=== PATIENT | female | born 1945 | race Asian ===

== ENCOUNTER → 2016-03-18 | Outpatient (CLI) | payer MEDICARE, OTHER | LOC: MC.RAD 13:39 | DX: Z12.31 Encounter for screening mammogram for malignant neoplasm of breast (principal) ==

== ENCOUNTER → 2017-03-21 | Outpatient (CLI) | payer MEDICARE, OTHER | LOC: MC.RAD 09:43 | DX: Z12.31 Encounter for screening mammogram for malignant neoplasm of breast (principal); N64.89 Other specified disorders of breast ==

== ENCOUNTER → 2017-03-30 | Outpatient (CLI) | payer MEDICARE, OTHER | LOC: MC.RAD 12:54 | DX: N60.01 Solitary cyst of right breast (principal) ==

== ENCOUNTER → 2018-05-25 | Outpatient (CLI) | payer MEDICARE, OTHER ==
[~2018-05-25] MED LIST: ASPIRIN 81M81 MG/TA2 PO; FISH OIL 1000MG1 CAP PO; FOSAMAX 70MG TA70 MG PO; GLUCOTROL 5M5 MG/TAB PO; JANUVIA 100MG100 MG PO; LIPITOR20 MG PO; PRINIVIL5 MG PO; ROCALTROL0.5 MCG PO; TIROSINT125 MC1 PO; ZYRTEC 10MG10 MG PO
== END ==
LOC: MC.RAD 09:08
DX: Z12.31 Encounter for screening mammogram for malignant neoplasm of breast (principal)

== ENCOUNTER 2018-10-16 07:02 | Outpatient (CLI) | payer MEDICARE, OTHER ==
[~2018-10-16] VITALS: Ht 162.6 cm; Wt 78.1 kg
[2018-10-16] VITALS (13 sets, daily range): BP systolic 100–184; BP diastolic 62–91; PULSE 68–97; TEMP 98–98.1
[2018-10-16] MEDS ORDERED: GLUCOPHAGE1000 MG PO (07:32)
[2018-10-16] MEDS ORDERED: TYLENOL 500MG500 MG PO (07:33)
--- NOTE | 2018-10-16 08:20 | NUR ---
pt having CT scan of chest done at this time
--- NOTE | 2018-10-16 08:43 | NUR ---
DR YOUNGER IN ROOM, VERSED 0.5MG IV THEN FENTANYL 25MCG IV GIVEN ORDERED BEFORE PROCEDURE.
--- NOTE | 2018-10-16 08:50 | NUR ---
JOSESITO OBTAINED AND PUT IN FORMULIN, PT TO W/C, NO C/O. BANDAID OVER SITE
--- NOTE | 2018-10-16 11:31 | NUR ---
Dr. Goldman in to see pt, CXR complete. INT discontinued intact. Discharge instructions given . Transferred to private car by dimitry
== END 2018-10-16 11:50 | disposition home or self-care (01) ==
LOC: COL.RAD 07:02
DX: Z01.818 Encounter for other preprocedural examination (principal); J84.10 Pulmonary fibrosis, unspecified; R91.8 Other nonspecific abnormal finding of lung field
CPT/HCPCS: J2250; J3010

== ENCOUNTER → 2018-11-03 | Outpatient (CLI) | payer MEDICARE, OTHER ==
[~2018-11-03] VITALS: Ht 162.6 cm; Wt 76.0 kg
[2018-11-03] VITALS (11 sets, daily range): BP systolic 143–178; BP diastolic 75–98; PULSE 80–107
[~2018-11-03] MED LIST changes: +GLUCOPHAGE1000 MG PO; +TYLENOL 500MG500 MG PO
--- NOTE | 2018-11-03 13:02 | NUR ---
Pt bp elevated Dr Goldman requested meds to be given.
--- NOTE | 2018-11-03 13:11 | NUR ---
Specimen obtained by Dr Goldman and placed in formalin. Specimen labeled. f
--- NOTE | 2018-11-03 13:45 | NUR ---
pt to ct per ambulation. Monitors applied to pt. Pt in prone position on ct table.
== END ==
LOC: COL.RAD 11:52
DX: C34.12 Malignant neoplasm of upper lobe, left bronchus or lung (principal); C79.51 Secondary malignant neoplasm of bone

== ENCOUNTER → 2018-11-15 | Outpatient (CLI) | payer MEDICARE, OTHER | LOC: COL.CARD 11:51 → COL.VAS 13:00 | DX: C34.12 Malignant neoplasm of upper lobe, left bronchus or lung (principal) ==

== ENCOUNTER → 2018-12-13 | Outpatient (CLI) | payer MEDICARE, OTHER | LOC: COL.CARD 11:00 | DX: C34.12 Malignant neoplasm of upper lobe, left bronchus or lung (principal) ==

== ENCOUNTER 2020-04-08 08:00 | Outpatient (RCR) | payer MEDICARE, OTHER ==
[2020-04-08] VITALS (10 sets, daily range): BP systolic 119–144; BP diastolic 58–87; PULSE 75–97; TEMP 97.4–98.1
== END 2020-04-08 13:02 | disposition home or self-care (01) ==
LOC: EUO 08:00
DX: C34.12 Malignant neoplasm of upper lobe, left bronchus or lung (principal)
CPT/HCPCS: J7050; P9016

== ENCOUNTER 2020-07-01 13:00 | Outpatient (RCR) | payer MEDICARE, OTHER ==
[2020-07-01] VITALS (9 sets, daily range): BP systolic 96–120; BP diastolic 52–80; PULSE 72–102; TEMP 97–97.8
[~2020-07-01] VITALS: Ht 162.6 cm; Wt 72.0 kg
[2020-07-01] MEDS ORDERED: NOVOLOG FLEX100 U/ML SQ (13:38)
[2020-07-01] MEDS ORDERED: MAG-OX 400400 MG/TAB PO (13:38)
[2020-07-01] MEDS ORDERED: MASON NATURAL1000 MG PO (13:39)
[2020-07-01] MEDS ORDERED: PRILOSEC 20MG20 MG PO (13:39)
[2020-07-01] MEDS ORDERED: VITAMIN D31000 I1 PO (13:39)
[2020-07-01] MEDS ORDERED: GLUCOTROL 5M5 MG/TAB PO (13:40)
== END 2020-07-01 17:20 | disposition home or self-care (01) ==
LOC: EUO 13:00
DX: C34.12 Malignant neoplasm of upper lobe, left bronchus or lung (principal)
CPT/HCPCS: J7050; P9016

== ENCOUNTER 2020-10-14 16:12 | Inpatient (IN) | payer MEDICARE, OTHER ==
[~2020-10-14] VITALS: Ht 162.6 cm; Wt 70.0 kg
[~2020-10-14 16:12] MED LIST changes: +MAG-OX 400400 MG/TAB PO; +MASON NATURAL1000 MG PO; +NOVOLOG FLEX100 U/ML SQ; +PRILOSEC 20MG20 MG PO; +VITAMIN D31000 I1 PO
[2020-10-14 16:59] LABS: BASO % 0.1 % (0.0-2.0); EOS % 0.1 % (0-4.0); GRAN % 89.8 % (42.2-75.2); HEMATOCRIT 40.6 % (37.0-47.0); HEMOGLOBIN 13.3 g/dl (12.5-16.0); LYMPH # 0.5 (1.2-3.4); LYMPH % 2.8 % (20.0-51.0); MEAN CELL VOLUME 104 fl (80.0-100.0); MEAN CORPUSCULAR HEMOGLOBIN 34 pg (27.0-31.0); MEAN CORPUSCULAR HGB CONC 33 g/dl (33.0-37.0); MEAN PLATELET VOLUME 9.2 fl (7.4-10.4); MONO % 6.2 % (1.7-9.3); PLATELET COUNT 341 K/mm3 (130-400); RED BLOOD COUNT 3.89 M/mm3 (4.10-5.30); REDCELL DISTRIBUTION WIDTH-CV 16.8 % (11.5-14.5)
[2020-10-14 17:02] LABS: ALANINE AMINOTRANSFERASE 31 U/L (4-34); ALBUMIN 4.4 gm/dL (3.5-5.0); ALKALINE PHOSPHATASE 103 U/L (50-136); ANION GAP 13 mmol/L (7-16); AST,SGOT 45 U/L (15-37); BILIRUBIN,TOTAL 0.8 mg/dL (0.0-1.0); BLOOD UREA NITROGEN 36 mg/dL (7-17); CALCIUM 9.8 mg/dL (8.4-10.2); CARBON DIOXIDE 23 mmol/L (22-30); CHLORIDE 97 mmol/L (98-107); CREATININE, serum 1.14 (0.52-1.25); GLUCOSE 110 mg/dL (74-106); POTASSIUM 4.6 mmol/L (3.4-5.0); SODIUM 133 mmol/L (137-145); TOTAL PROTEIN 8.8 gm/dL (6.4-8.2)
[2020-10-14 17:07] LABS: COLLECTION METHOD CLEAN CATCH
[2020-10-14 17:19] LABS: TROPONIN-I < 0.012 ng/mL (0.000-0.035)
[2020-10-14 17:23] LABS: AMORPHOUS CRYSTAL Present /uL; PH 7 (5-8); SQUAMOUS EPITHELIAL None Seen /hpf; URINE APPEARANCE Hazy; URINE BACTERIA None Seen /hpf; URINE BILIRUBIN Negative (NEGATIVE); URINE BLOOD Negative (NEGATIVE); URINE COLOR Yellow; URINE GLUCOSE Negative (NEGATIVE); URINE KETONE Negative (NEGATIVE); URINE LEUKOCYTE ESTERASE Negative (NEGATIVE); URINE NITRATE Negative (NEGATIVE); URINE PROTEIN(semi-quant) Negative (NEGATIVE); URINE RBC 0-2 /hpf; URINE UROBILINOGEN Negative (NEGATIVE)
--- NOTE | 2020-10-14 18:55 | NUR ---
Vancomycin Initial Dosing Pharmacy Note Ordering provider: Miriam Gallagher DO Indication/duration: Pneumonia, 7 days LABS: SCr 1.14, CrCl~36, GFR 46 Recommendation: Will give Vancomycin 1.5 gm IV x1 loading dose, then Vancomycin 1 gm IV q24h. Pharmacy will continue to closely montior and check a Vancomycin trough on 10/17/20. Loading dose: 1.5 grams Maintenance dose: 1 gram every 24 hours Trough goal: 15-20 ug/mL
--- NOTE | 2020-10-14 21:13 | NUR ---
ARRIVED TO UNIT VIA STRETCHER, CONFUSED UNABLE TO PARTICPATE IN HISTORY, CALL PLACED TO TO HAVE MOST ACCURATE INFOMATION, ASSESSMENT COMPLETED AT THIS TIME, STABLE CONDITION.
[2020-10-14 21:18] VITALS: BP 95/83; PULSE 96; TEMP 99.4
[2020-10-15] VITALS (7 sets, daily range): BP systolic 92–107; BP diastolic 47–70; PULSE 58–93; TEMP 97.6–98.7
--- NOTE | 2020-10-15 08:13 | NUR ---
Phone consent for lumbar puncture recieved from patient's via phone. HUGH Ramirez 2nd witness.
[2020-10-15 08:31] LABS: CALCIUM 8.3 mg/dL (8.4-10.2); CREATININE, serum 0.98 (0.52-1.25); POTASSIUM 4.4 mmol/L (3.4-5.0)
[2020-10-15 08:33] LABS: MEAN CELL VOLUME 102 fl (80.0-100.0); MEAN CORPUSCULAR HGB CONC 34 g/dl (33.0-37.0); MEAN PLATELET VOLUME 9.3 fl (7.4-10.4); PLATELET COUNT 282 K/mm3 (130-400); RED BLOOD COUNT 2.82 M/mm3 (4.10-5.30); REDCELL DISTRIBUTION WIDTH-CV 16.6 % (11.5-14.5)
[2020-10-15 08:35] LABS: HEMOGLOBIN 9.8 g/dl (12.5-16.0); MEAN CORPUSCULAR HEMOGLOBIN 35 pg (27.0-31.0)
[2020-10-15 08:36] LABS: HEMATOCRIT 28.7 % (37.0-47.0)
[2020-10-15 09:20] LABS: TOTAL PROTEIN,CSF 105 mg/dL (15-45)
[2020-10-15 09:49] LABS: ANISOCYTOSIS 1+; BAND 1 % (0-10); LYMPHOCYTE 3 % (20.0-51.0); MYELOCYTE 1 % (0-0); NEUTROPHILS 91 % (42.0-75.2); PLATELET ESTIMATE NORMAL (NORMAL)
--- NOTE | 2020-10-15 09:53 | NUR ---
The patient has AMS. FERNANDO contacted the patient's , Easton (ph#[phone]), to discuss discharge plan. The patient lives in [place] with Easton. Easton reports that the patient has been needing assistance with ADLs recently and that she has a cane. Easton states that he helps her with her ADLs. The patient's PCP is Dr. Lyssa Gould and she receives her medications on [place]. Easton reports that the patient does not have a DPOA-HC. The patient has lung cancer with mets. Easton reports that the patient has been receiving radiation therapy and that her last treatment was on Tuesday. He states that the patient has more radiation treatments coming up, but that he needs to talk to the doctors about their plans and if the treatments would even help. He states that he is uncertain of d/c plan at this time. SW to update the clinical team. PT/OT have been ordered. SW to continue to follow. *Discharge plan: unknown at this time*
[2020-10-15 10:03] LABS: CSF APPEARANCE CLEAR; CSF COLOR COLORLESS; CSF RBC 49 /mm3 (0-0)
[2020-10-15 10:22] LABS: CSF MONONUCLEAR 1 % (70-100); CSF POLYMORPHONUCLEAR 99 % (0-6)
--- NOTE | 2020-10-15 10:49 | NUR ---
Patient back from Lumbar puncture. Scheduled medications given. Shift assessment preformed. Patient answers name and birthdate correctly, but is unable to answer other orientation questions. VSS. Purewick placed to help with incontinence. No skin issues noted. Patient denies any pain, discomfort, or further needs at this time. Continues to be NPO until Speech therapy is able to evaluate. Fluids running as ordered. Call light in reach. Fall precautions in place.
--- NOTE | 2020-10-15 15:36 | NUR ---
I spoke with Easton Terry by phone this afternoon. He reports that he has seen his twice today and feels that she is improving. She has completed 7/10 radiation treatments but has not been eating or drinking and has been very confused and not able to function well. He is not sure if they will choose to continue radiation therapy or if this may be the stopping point. he is t hinking that having some nursing help in the home would be helpful. He is not familiar with either home health or hospice but depending on how she does over the next few days, he feels he will know more of what their goals are. Pt has no advanced directives. We did talk about being at a crossroads. If she improves then they may consider further treatments if Dr Conway feels they will ehlp and not hurt her. He is also willing to look at hospice services in the home for her if there is no further treatment available. He doesn't want to do anything that will cause her more harm. Support provided and will wait to see how the next few days of observed care develop.
--- NOTE | 2020-10-15 18:14 | NUR ---
Patient had an ok day. Patient only oriented to person and birthday. Infectious diseas consult called. Fluids running as ordered. Purewick in place. Diet advanced to General diet with nectar thick liquids. VSS. Patient denies any pain, discomfort, or further needs at this time. Call light in reach. at the bedside. Fall precautions in place.
[2020-10-16 04:03] VITALS: BP 108/60; PULSE 66; TEMP 98
--- NOTE | 2020-10-16 06:30 | NUR ---
Patient slept most the night. No complaints of pain or nausea. Had a hard time keeping IV's on her. 2 infiltrated at the start of the shift. Her antibiotics got off on the times. Patient continues to be confused. She moves around a lot so the purewick keeps moving out of place. Cleaned her up twice during the night and changed the bed. No other changes at this time. Call light within reach. Bed alarm on.
[2020-10-16 07:26] LABS: MEAN CELL VOLUME 106 fl (80.0-100.0); MEAN CORPUSCULAR HGB CONC 33 g/dl (33.0-37.0); MEAN PLATELET VOLUME 9.2 fl (7.4-10.4); PLATELET COUNT 255 K/mm3 (130-400); RED BLOOD COUNT 2.83 M/mm3 (4.10-5.30); REDCELL DISTRIBUTION WIDTH-CV 16.7 % (11.5-14.5)
[2020-10-16 07:28] LABS: HEMATOCRIT 29.9 % (37.0-47.0); HEMOGLOBIN 9.8 g/dl (12.5-16.0); MEAN CORPUSCULAR HEMOGLOBIN 35 pg (27.0-31.0)
[2020-10-16 07:34] LABS: CALCIUM 7.6 mg/dL (8.4-10.2); CREATININE, serum 1.14 (0.52-1.25); MAGNESIUM 1.5 mg/dL (1.6-2.3)
--- NOTE | 2020-10-16 08:38 | NUR ---
Patient pulled IV out this AM. Per report, previous shift has attempted three IV's. Only one was successfully placed. Dr. Flores contacted regarding possibility of placing of PICC line. Dr. Flores agreed, and orders were placed. Lucrecia contacted.
[2020-10-16 08:40] LABS: LYMPHOCYTE 2 % (20.0-51.0); NEUTROPHILS 96 % (42.0-75.2); PLATELET ESTIMATE NORMAL (NORMAL)
[2020-10-16 08:42] LABS: ANISOCYTOSIS 1+
[2020-10-16 08:43] LABS: OVALOCYTES 1+
[2020-10-16 09:01] VITALS: BP 121/70; PULSE 93; TEMP 98
--- NOTE | 2020-10-16 10:33 | NUR ---
A palliative care consult was ordered. Giana, Palliative Care Nurse, informed SW that she spoke to the patient's and discussed home health vs hospice in the home. The patient's would like to see how the patient does these next few days, before making any decisions. SW to continue to follow.
--- NOTE | 2020-10-16 11:09 | NUR ---
Scheduled medications given. Shift assessment preformed. Patient is alert and oriented to person and time, but not place. VSS. Purewick in place. Patient denies any pain, discomfort, SOA, or further needs at this time. Call light in reach. Fall precautions in place.
[2020-10-16 12:00] VITALS: BP 113/64; PULSE 98; TEMP 97.6
--- NOTE | 2020-10-16 14:37 | NUR ---
I met with patient sudeep espinoza her Easton. Easton is aware that we are waiting on cultures and pathology reports to help clarify what has caused this problems for her. I did provide with information from medicare.gov about home health and hospice services available for [place]. We went over the difference between these two services--rehab vs comfort. He is questioning if continuing radiation will help his or make things worse for her. We talked about the differences in care if this were an infection vs a spread of the cancer. He seemed to understand what he was told and that we really would not know until further lab results were available.
[2020-10-16 17:16] VITALS: BP 109/53; PULSE 91; TEMP 97.5
--- NOTE | 2020-10-16 18:48 | NUR ---
Patient has had a good day. Scheduled meds given. VSS. Patient alert and orientated to person and time, not place. Patient was able to ambulate in the [place] with assistance of PT. Patient able to get up and use the restroom with assistance. Patient denies any pain, discomfort, or further needs at this time. Call light in reach. Fall precautions in place.
[2020-10-16 20:00] VITALS: BP 122/60; PULSE 65; TEMP 97.7
--- NOTE | 2020-10-16 22:38 | NUR ---
PT ALERT AND ORIENTED X4, ABLE TO CONVERSE FREELY. PT DENIES PAIN AT THIS TIME. PT RIGHT UPPER ARM PICC LINE INFUSING THROUGH PURPLE PORT, RED PORT FLUSHED AND BLOOD RETURN NOTED. PT STATES SHE HAS NOTED SOME SWELLING IN LEGS, NON-PITTING. PT CALL LIGHT WITHIN REACH.
[2020-10-16 23:49] VITALS: BP 139/64; PULSE 67; TEMP 97.5
--- NOTE | 2020-10-17 01:53 | NUR ---
INTERMITTENT CONFUSION NOTED DURING MEDICATION ADMINISTRATION, PT REORIENTS EASILY.
[2020-10-17 04:30] VITALS: BP 130/64; PULSE 66; TEMP 98.3
--- NOTE | 2020-10-17 05:28 | NUR ---
PT HAD MILD CONFUSION DURING 0000 NEURO CHECKS. PT ALERT AND ORIENTED FOR 1999 AND NEURO CHECKS. PT ABLE TO CONVERSE FREELY THIS SHIFT. FALL PRECAUTIONS OBSERVED. PT VS STABLE THIS SHIFT.
[2020-10-17 07:43] VITALS: BP 131/65; PULSE 67; TEMP 98.3
[2020-10-17 13:34] VITALS: BP 146/70; PULSE 63; TEMP 97.5
--- NOTE | 2020-10-17 14:37 | NUR ---
FERNANDO attended clinical rounds. The patient is to be here through the weekend. They are still awaiting the patient's cytology results. FERNANDO contacted the patient's , Easton, to review d/c plan. The patient states that he would like to see how the patient does over the weekend and her results. He reports that if they do return home with continued treatment, he would be interested in home health from the agency out of [place]. FERNANDO contacted and faxed a referral to [facility] at [facility]. Awaiting screen.
[2020-10-17 15:41] VITALS: BP 122/61; PULSE 66; TEMP 97.7
[2020-10-17 19:15] VITALS: BP 117/62; PULSE 74; TEMP 97.8
[2020-10-17 23:20] VITALS: BP 132/65; PULSE 61; TEMP 97.5
--- NOTE | 2020-10-18 00:41 | NUR ---
PT ABLE TO ANSWER ORIENTATION QUESTIONS. PT HAD MILD CONFUSION WITH CONVERSATION, EASILY REORIENTED. PT ABLE TO AMBULATED TO BATHROOM USING FALL PRECAUTIONS AND WALKER. PT HAD LARGE BM. PT WAS INCONTINENT, FULL LINEN CHANGE AND INCONTINENCE CARE PROVIDED. PT HAS PUREWICK IN PLACE. PT LUMENS FLUSHED WITH BLOOD RETURN NOTED. PT HAS CALL LIGHT WITHIN REACH.
[2020-10-18 04:00] VITALS: BP 119/62; PULSE 69; TEMP 98.3
--- NOTE | 2020-10-18 07:40 | NUR ---
PT NEURO CHECKS WERE STABLE THIS SHIFT. PT HAD MILD INTERMITTENT CONFUSION, NOTED IMPROVED FROM LAST SHIFT. PT DENIED PAIN DURING SHIFT AND WAS ABLE TO AMBULATE TO RESTROOM WITH FALL PRECAUTIONS OBSERVED. PT RECEIVING ABX FOR INFECTION. PT FREE FROM INJURY THIS SHIFT.
[2020-10-18 08:06] LABS: BASO % 0.1 % (0.0-2.0); EOS # 0.1 (0.0-0.7); EOS % 0.6 % (0-4.0); GRAN # 7.1 (1.4-6.5); GRAN % 86.3 % (42.2-75.2); LYMPH # 0.5 (1.2-3.4); LYMPH % 6.4 % (20.0-51.0); MEAN CELL VOLUME 105 fl (80.0-100.0); MEAN CORPUSCULAR HGB CONC 33 g/dl (33.0-37.0); MONO # 0.5 (0.1-0.6); MONO % 6.1 % (1.7-9.3); PLATELET COUNT 252 K/mm3 (130-400); RED BLOOD COUNT 2.67 M/mm3 (4.10-5.30); REDCELL DISTRIBUTION WIDTH-CV 16.3 % (11.5-14.5)
[2020-10-18 08:10] LABS: HEMATOCRIT 27.9 % (37.0-47.0); HEMOGLOBIN 9.2 g/dl (12.5-16.0); MEAN CORPUSCULAR HEMOGLOBIN 34 pg (27.0-31.0)
[2020-10-18 08:18] LABS: CALCIUM 7.3 mg/dL (8.4-10.2); CREATININE, serum 0.88 (0.52-1.25); MAGNESIUM 1.5 mg/dL (1.6-2.3); POTASSIUM 3.8 mmol/L (3.4-5.0)
[2020-10-18 08:19] VITALS: BP 128/59; PULSE 62; TEMP 97.9
--- NOTE | 2020-10-18 08:45 | NUR ---
Pt awake and alert upon entry, no C/O pain at this time. Shift assessments complete, left Pt call light in reach, bed in lowest position.
[2020-10-18 11:59] VITALS: BP 125/64; PULSE 84; TEMP 97.7
--- NOTE | 2020-10-18 14:19 | NUR ---
FERNANDO informed by physician patient would be referred to hospice due to clinical need. Physician stated he would be having a conversation with spouse on this day about the referral. Spouse contacted nurse to speak to SW. SW provided information in regards to hospice services. Patient stated he would like information in regards to [facility] services. SW sent referral to [facility], staff member returned call and stated they would give spouse a call to discuss, and arrange a tour of facility due to patient's spouse request. FERNANDO will continue to follow.
[2020-10-18 17:24] VITALS: BP 139/60; PULSE 72; TEMP 98
[2020-10-18 23:44] VITALS: BP 121/62; PULSE 65; TEMP 98
[2020-10-19 03:48] VITALS: BP 146/71; PULSE 71; TEMP 98
--- NOTE | 2020-10-19 06:26 | NUR ---
PT NEURO CHECKS STABLE AND WITHIN DEFINED LIMITS THIS SHIFT. NO SIGNIFICANT CHANGES NOTED. PT CONTINUING ON IV ABX THIS SHIFT. PT DENIED PAIN THIS SHIFT. PT HAD ONE BOUT OF INCONTINENCE, CLEANED WITH PERSONAL CLEANSING WIPES, PARTIAL LINEN CHANGE PROVIDED. PUREWICK IN PLACE. PT FREE FROM INJURY THIS SHIFT.
[2020-10-19 07:54] VITALS: BP 137/63; PULSE 63; TEMP 98.4
--- NOTE | 2020-10-19 08:28 | NUR ---
Pt napping upon entry, easily awakened. No C/O pain at this time. Shift assessment complete, repositioned Pt in bed, left Pt bed in lowest position, call light in reach.
--- NOTE | 2020-10-19 11:29 | NUR ---
Provided pericare to Pt, replaced brief and pure wick.
[2020-10-19 11:48] VITALS: BP 125/67; PULSE 69; TEMP 97.9
[2020-10-19 16:38] VITALS: BP 128/67; PULSE 72; TEMP 98.5
[2020-10-19 20:45] VITALS: BP 126/68; PULSE 96; TEMP 98.1
[2020-10-20 01:12] VITALS: BP 115/67; PULSE 63; TEMP 97.9
[2020-10-20 05:02] VITALS: BP 111/70; PULSE 60; TEMP 98.2
--- NOTE | 2020-10-20 05:13 | NUR ---
Patient rested quietly throughout shift, turning frequently side to side, incontinent care provided as needed, VS stable, no s/s of hypo/hyper glycemia noted, denies pain, will continue to monitor.
[2020-10-20 07:53] VITALS: BP 113/73; PULSE 76; TEMP 98.4
--- NOTE | 2020-10-20 09:22 | NUR ---
Talked with Easton by phone this morning. He is still in [place] but will be heading this way soon. He did tour [facility] and did like it, also looking at skilled nursing, [facility], in [place] but then states he thinks she would get better care at [facility]. We will talk further when he arrives. [facility] does have a referral and are aware of this patient. Potential for transfer to there later today if that is what family decides.
--- NOTE | 2020-10-20 09:26 | NUR ---
Pt awake upon entry to room, no C/O pain at this time. Shift assessments complete. Left Pt call light in reach, needs met.
--- NOTE | 2020-10-20 10:56 | NUR ---
is here now and feels he would like for his to go to [facility]. He feels he can transport by private care and is fine with her transfer today if it can be arranged.
--- NOTE | 2020-10-20 11:14 | NUR ---
We are anticipating discharge this afternoon with transport by private care to [facility]. We are waiting for Dr Shore to verify that he will be following physician with [facility]. A covid test was requested and this was passed on to Ebenezer, her primary nurse. Comfort quilt provided with explanation. Marybel from [facility] will call when she hears from Dr Shore.
[2020-10-20 11:38] VITALS: BP 117/57; PULSE 97; TEMP 97.7
--- NOTE | 2020-10-20 13:17 | NUR ---
Phone call from Marybel at [facility] that pt should come to [facility] as soon as possible after COVID test is reported and orders are completed for admission under Dr Shore. Ebenezer, primary nurse, advised covid swab pending and Dr Joy advises he will work on orders in next few minutes.
[2020-10-20] MEDS ORDERED: ROXICODONE 55 MG/TAB PO ×3 (13:56→15:11)
[2020-10-20] MEDS ORDERED: SENNA-S 50 MG-81 TAB PO ×3 (13:57→15:11)
[2020-10-20 14:57] VITALS: BP 117/57; PULSE 97; TEMP 97.7
[2020-10-20] MEDS ORDERED: ZYRTEC 10MG10 MG PO (15:11)
[2020-10-20] MEDS ORDERED: TYLENOL 500MG500 MG PO (15:11)
[2020-10-20] MEDS ORDERED: GLUCOTROL 5M5 MG/TAB PO (15:11)
--- NOTE | 2020-10-20 15:17 | NUR ---
A referral was faxed to the [facility] this weekend. Giana, palliative care nurse, notified FERNANDO that the patient's family have decided to pursue hospice at the hospice house and that the [facility] can accept today. The patient is to discharge today, 10/20, to the [facility]. Transportation to be by private vehicle, via the patient's . FERNANDO faxed d/c orders to Marybel at the hospice house. FERNANDO presented and read the IM form outloud to the patient's , Easton. Easton verbalized understanding and signed the form. No additional needs at this time.
--- NOTE | 2020-10-20 15:36 | NUR ---
Pt discharged to hospice, Assisted dressing Pt, transferred to . Pt escorted to entrance by PCT via , Pt left with spouse via private transportation.
== END 2020-10-20 15:15 | disposition hospice, inpatient (51) | DRG 871 ==
LOC: COL.ER 16:12 → MEDICAL 18:10
PROVIDERS: Emergency Medicine; Internal Medicine; Physician Assistant; ADMIT Internal Medicine
PROC: 02HV33Z Insertion of Infusion Device into Superior Vena Cava, Percutaneous Approach (ICD-10-PCS; principal; 2020-10-16)
DX: A41.9 Sepsis, unspecified organism (principal); G93.6 Cerebral edema; J18.9 Pneumonia, unspecified organism; G03.9 Meningitis, unspecified; C34.90 Malignant neoplasm of unspecified part of unspecified bronchus or lung; C79.31 Secondary malignant neoplasm of brain; G93.49 Other encephalopathy; K21.9 Gastro-esophageal reflux disease without esophagitis; N18.9 Chronic kidney disease, unspecified; I12.9 Hypertensive chronic kidney disease with stage 1 through stage 4 chronic kidney disease, or unspecified chronic kidney disease; M81.0 Age-related osteoporosis without current pathological fracture; E03.9 Hypothyroidism, unspecified; Z66 Do not resuscitate; Z20.822 Contact with and (suspected) exposure to COVID-19; Z79.82 Long term (current) use of aspirin; Z79.4 Long term (current) use of insulin
CPT/HCPCS: 99231-AI; 99232-AI; 99233-AI; 99239; C1751; C9113; J0133; J0290; J0696; J1100; J1650; J1815; J1956; J2543; J3370; J3475; J7030; J7042; J7050; J7120